=== PATIENT | male | born 1965 | race African-American/Black ===

== ENCOUNTER 2016-05-25 10:04 | Emergency (ER) | payer MEDICAID ==
[~2016-05-25] VITALS: Ht 180.3 cm; Wt 125.0 kg
[2016-05-25] MEDS ORDERED: ONDANSETRON HCL 4 MG/2 ML VIAL IVP ONE (11:00)
[2016-05-25] MEDS ORDERED: PANTOPRAZOLE SODIUM 40 MG/VIAL IVP ONE (11:00)
[2016-05-25] MEDS ORDERED: SODIUM CHLORIDE 0.9% 1,000 ML IV ONE (11:00)
[2016-05-25 11:25] LABS: BASOPHILS # (AUTO) 0.02 K/uL (0.00-0.20); BASOPHILS % (AUTO) 0.3 % (0.0-2.0); EOSINOPHILS # (AUTO) 0.04 K/uL (0.00-0.70); EOSINOPHILS % (AUTO) 0.68 % (1.0-6.0); HEMATOCRIT 40.2 % (41-53); HEMOGLOBIN 13.3 g/dL (13.5-17.5); LYMPHOCYTES % (AUTO) 35.3 % (22.0-44.0); MEAN CORPUSCULAR HEMOGLOBIN 24.4 pg (26.0-34.0); MEAN CORPUSCULAR VOLUME 74 fL (80-100); MONOCYTES # (AUTO) 0.6 K/uL (0.1-1.0); NEUTROPHILS % (AUTO) 53.8 % (40.0-70.0); PLATELET COUNT (AUTO) 208 K/uL (150-450); RED BLOOD CELL COUNT(AUTO) 5.44 MIL/uL (4.50-5.90); RED CELL DISTRIBUTION WIDTH 19.1 % (11.5-14.5); WHITE BLOOD COUNT (AUTO) 5.6 K/uL (4.5-11.0)
[2016-05-25 11:30] LABS: RBC MORPHOLOGY COMMENT ABNORMAL RBC MORPH
[2016-05-25 11:42] LABS: ANION GAP 7 mmol/L (8-16); CALCIUM, TOTAL 8.8 mg/dL (8.8-10.5); CARBON DIOXIDE 30 mmol/L (22-29); CHLORIDE 106 mmol/L (98-107); CREATININE 1.01 mg/dL (0.60-1.30); GLOMERULAR FILTR. RATE CALC > 60 mL/min (>60); POTASSIUM 4.6 mmol/L (3.5-5.1); SODIUM SERUM 143 mmol/L (136-145); UREA NITROGEN, BLOOD 10 mg/dL (7-18)
[2016-05-25 11:45] LABS: ALANINE AMINOTRANSFERASE 29 U/L (12-78); ALBUMIN 3.6 g/dL (3.4-5.0); ASPARTATE AMINOTRANSFERASE 26 U/L (15-37); BILIRUBIN,TOTAL 0.3 mg/dL (0.1-1.0)
[2016-05-25 11:54] LABS: B-TYPE NATRIURETIC PEPTIDE 19 pg/mL (0-100)
[2016-05-25 13:30] LABS: ADD UA MICROSCOPIC NO; APPEARANCE,URINE CLEAR (CLEAR); GLUCOSE, URINE (UA) NEGATIVE (NEGATIVE); KETONES,URINE NEGATIVE (NEGATIVE); LEUKOCYTE ESTERASE ,URINE NEGATIVE (NEGATIVE); OCCULT BLOOD,URINE NEGATIVE (NEGATIVE); PROTEIN,URINE NEGATIVE (NEGATIVE)
[2016-05-25 13:31] VITALS: BP 122/89
== END 2016-05-25 13:43 | disposition home or self-care (01) ==
LOC: EMS 10:07
DX: R07.9 Chest pain, unspecified (principal); R10.9 Unspecified abdominal pain; K21.9 Gastro-esophageal reflux disease without esophagitis
CPT/HCPCS: 36415; 71010; 80053; 80307; 81003; 83880; 84484; 85025; 93005; 96374; 96375; 99285; C9113; J2405; J7030

== ENCOUNTER 2019-10-01 16:13 | Emergency (ER) | payer MEDICAID, OTHER ==
[~2019-10-01] VITALS: Ht 180.3 cm; Wt 129.6 kg
[2019-10-01] MEDS ORDERED: HYDROCODONE/ACETAMINOPHEN 5-325 MG TABLET PO ONE (20:45)
[2019-10-01] MEDS ORDERED: LIDOCAINE 1% 10 ML VIAL INJ ONE (20:45)
[2019-10-01] MEDS ORDERED: SODIUM CHLORIDE 0.9% 250 ML IRRIG SOLUTION BOTTLE IRRIG ONE (20:45)
[2019-10-01] MEDS ORDERED: POVIDONE-IODINE 10% 15 ML SOLUTION UD TP ONE (20:45)
[2019-10-01 23:42] VITALS: BP 140/98
== END 2019-10-01 23:55 | disposition home or self-care (01) ==
LOC: EMS 16:13
DX: S91.115A Laceration without foreign body of left lesser toe(s) without damage to nail, initial encounter (principal); W20.8XXA Other cause of strike by thrown, projected or falling object, initial encounter; Y93.89 Activity, other specified; Y92.89 Other specified places as the place of occurrence of the external cause; Y99.8 Other external cause status
CPT/HCPCS: 12001; 73660; 99285; J3490

== ENCOUNTER 2024-06-15 09:37 | Emergency (ER) | payer OTHER ==
[~2024-06-15] VITALS: Ht 180.3 cm; Wt 143.2 kg
[2024-06-15 09:51] VITALS: BP 132/94; PULSE 67; RESP 18; TEMP 98.2; O2SAT 98
[2024-06-15] MEDS ORDERED: HYDR30OI13 TP (12:21)
[2024-06-15] MEDS ORDERED: POLY17PO47 PO (12:22)
== END 2024-06-15 12:33 | disposition home or self-care (01) ==
LOC: EMS 09:40
DX: K64.4 Residual hemorrhoidal skin tags (principal); Z98.890 Other specified postprocedural states
CPT/HCPCS: 99282; Z7502

== ENCOUNTER 2025-01-25 18:01 | Emergency (ER) | payer OTHER ==
[~2025-01-25] VITALS: Ht 180.3 cm; Wt 143.1 kg
[~2025-01-25 18:01] MED LIST: HYDR30OI13 TP; POLY17PO47 PO
[2025-01-25 19:44] VITALS: TEMP 98.7
[2025-01-25 20:23] LABS: CALCIUM, TOTAL 8.5 mg/dL (8.8-10.5); CREATININE 0.90 mg/dL (0.60-1.30); GLOMERULAR FILTR. RATE CALC > 60 mL/min (>60); GLUCOSE,RANDOM 130 mg/dL (70-110); SODIUM SERUM 139 mmol/L (136-145); UREA NITROGEN, BLOOD 14 mg/dL (7-18)
[2025-01-25 20:29] LABS: TROPONIN I-HIGH SENSITIVITY 13 ng/L (<76)
[2025-01-25 20:38] LABS: PLATELET COUNT (AUTO) 257 K/uL (150-450); RED BLOOD CELL COUNT(AUTO) 5.64 MIL/uL (4.50-5.90); RED CELL DISTRIBUTION WIDTH 18.4 % (11.5-14.5); WHITE BLOOD COUNT (AUTO) 7.8 K/uL (4.5-11.0)
[2025-01-25 20:50] VITALS: BP 145/96; PULSE 58; RESP 18; O2SAT 97
[2025-01-25 21:08] LABS: RBC MORPHOLOGY COMMENT ABNORMAL RBC MORPH
== END 2025-01-25 21:21 ==
LOC: EMS 18:01
DX: I10 Essential (primary) hypertension (principal); Z98.890 Other specified postprocedural states; Z79.899 Other long term (current) drug therapy
CPT/HCPCS: 99285; 71045; 80048; 84484; 85025; 36415; 93005; G0480